=== PATIENT | male | born 2000 | race Caucasian/White ===

== ENCOUNTER 2024-06-26 19:52 | Emergency (ER) | payer BC ==
[~2024-06-26] VITALS: Ht 188 cm; Wt 87.0 kg
[2024-06-26 20:20] VITALS: O2SAT 100
[2024-06-26] MEDS ORDERED: LIDO700A15 TP (22:09)
[2024-06-26] MEDS ORDERED: NAPR-1176 MT (22:09)
[2024-06-26 22:24] VITALS: TEMP 36.55848; O2SAT 100
[2024-06-26 22:29] VITALS: BP 125/75; PULSE 75; RESP 16
[2024-06-26] MEDS: KETOROLAC 15MG/ML VIAL IM ONE (22:29)
== END 2024-06-26 22:27 | disposition home or self-care (01) ==
LOC: ER 19:52
DX: M25.511 Pain in right shoulder (principal); Z79.1 Long term (current) use of non-steroidal anti-inflammatories (NSAID)
CPT/HCPCS: 73030; 99283